=== PATIENT | male | born 1955 | race Caucasian/White ===

== ENCOUNTER 2016-10-23 12:04 | Emergency (ER) | payer SELFPAY ==
[~2016-10-23] VITALS: Ht 180.3 cm; Wt 79.5 kg
[2016-10-23] MEDS ORDERED: RISP2 PO (12:21)
[2016-10-23] MEDS ORDERED: LITH300T PO (12:21)
[2016-10-23 12:33] LABS: BASOPHILS # (AUTO) 0.04 K/uL (0.00-0.20); BASOPHILS % (AUTO) 0.6 % (0.0-2.0); EOSINOPHILS % (AUTO) 1.36 % (1.0-6.0); HEMOGLOBIN 15.9 g/dL (13.5-17.5); LYMPHOCYTES # (AUTO) 1.3 K/uL (1.0-4.8); LYMPHOCYTES % (AUTO) 18.4 % (22.0-44.0); MEAN CORPUSCULAR HEMOGLOBIN 31.1 pg (26.0-34.0); MEAN CORPUSCULAR HGB CONC 34.6 G/dL (31.0-37.0); MEAN CORPUSCULAR VOLUME 90 fL (80-100); MONOCYTES # (AUTO) 0.7 K/uL (0.1-1.0); MONOCYTES % (AUTO) 9.2 % (2.0-9.0); NEUTROPHILS # (AUTO) 5.1 K/uL (1.8-7.7); NEUTROPHILS % (AUTO) 70.5 % (40.0-70.0); PLATELET COUNT (AUTO) 331 K/uL (150-450); RED BLOOD CELL COUNT(AUTO) 5.12 MIL/uL (4.50-5.90); RED CELL DISTRIBUTION WIDTH 12.9 % (11.5-14.5); WHITE BLOOD COUNT (AUTO) 7.3 K/uL (4.5-11.0)
[2016-10-23 12:42] LABS: ANION GAP 10 mmol/L (8-16); CALCIUM, TOTAL 9.4 mg/dL (8.8-10.5); CARBON DIOXIDE 25 mmol/L (22-29); CHLORIDE 102 mmol/L (98-107); CREATININE 1.06 mg/dL (0.60-1.30); GLOMERULAR FILTR. RATE CALC > 60 mL/min (>60); POTASSIUM 4.5 mmol/L (3.5-5.1); SODIUM SERUM 137 mmol/L (136-145); UREA NITROGEN, BLOOD 28 mg/dL (7-18)
[2016-10-23 12:48] LABS: ALANINE AMINOTRANSFERASE 46 U/L (12-78); ALBUMIN 4.1 g/dL (3.4-5.0); ASPARTATE AMINOTRANSFERASE 106 U/L (15-37); BILIRUBIN,TOTAL 1.2 mg/dL (0.1-1.0); TOTAL PROTEIN, SERUM 8.4 g/dL (6.4-8.2)
[2016-10-23] MEDS ORDERED: RisperiDONE 1 MG TABLET PO ONE (13:00)
[2016-10-23 13:01] LABS: LITHIUM < 0.20 mmol/L (0.60-1.20)
[2016-10-23 14:04] VITALS: BP 130/72
[2016-10-23] MEDS ORDERED: LORazepam 2 MG TABLET PO ONE (15:45)
== END 2016-10-23 16:22 | disposition home or self-care (01) ==
LOC: EEVIPCON 12:04 → EMS 12:07
DX: F31.9 Bipolar disorder, unspecified (principal); F20.9 Schizophrenia, unspecified; F17.210 Nicotine dependence, cigarettes, uncomplicated
CPT/HCPCS: 36415; 80053; 80178; 85025; 99284; G0480

== ENCOUNTER 2016-12-13 02:19 | Inpatient (IN) | payer MEDICAID ==
[~2016-12-13] VITALS: Ht 177.8 cm; Wt 77.2 kg
[~2016-12-13 02:19] MED LIST: LITH300C3 PO; RISP2 PO
[2016-12-13] MEDS ORDERED: LORazepam 2 MG/ML VIAL IM ONE (04:45)
[2016-12-13] MEDS ORDERED: HALOPERIDOL LACTATE 5 MG/ML VIAL IM ONE (04:45)
[2016-12-13] MEDS ORDERED: DiphenhydrAMINE HCL 50 MG/ML VIAL IM ONE (04:45)
[2016-12-13] MEDS ORDERED: HALOPERIDOL 5 MG TABLET PO PRN (05:15)
[2016-12-13] MEDS ORDERED: LORazepam 2 MG TABLET PO PRN (05:15)
[2016-12-13] MEDS ORDERED: ZOLPIDEM TARTRATE 10 MG TABLET PO PRN (05:15)
[2016-12-13 05:46] VITALS: BP 106/57
[2016-12-13 06:24] LABS: BASOPHILS % (AUTO) 0.4 % (0.0-2.0); EOSINOPHILS % (AUTO) 2.1 % (1.0-6.0); HEMATOCRIT 40.6 % (41-53); HEMOGLOBIN 14.2 g/dL (13.5-17.5); LYMPHOCYTES # (AUTO) 1.3 K/uL (1.0-4.8); LYMPHOCYTES % (AUTO) 15.5 % (22.0-44.0); MEAN CORPUSCULAR HEMOGLOBIN 31.7 pg (26.0-34.0); MEAN CORPUSCULAR VOLUME 91 fL (80-100); MONOCYTES # (AUTO) 0.6 K/uL (0.1-1.0); MONOCYTES % (AUTO) 7.1 % (2.0-9.0); NEUTROPHILS # (AUTO) 6.3 K/uL (1.8-7.7); NEUTROPHILS % (AUTO) 74.9 % (40.0-70.0); PLATELET COUNT (AUTO) 273 K/uL (150-450); RED BLOOD CELL COUNT(AUTO) 4.48 MIL/uL (4.50-5.90); RED CELL DISTRIBUTION WIDTH 12.7 % (11.5-14.5); WHITE BLOOD COUNT (AUTO) 8.5 K/uL (4.5-11.0)
[2016-12-13 06:34] LABS: APPEARANCE,URINE CLEAR (CLEAR); GLUCOSE, URINE (UA) NEGATIVE (NEGATIVE); KETONES,URINE NEGATIVE (NEGATIVE); LEUKOCYTE ESTERASE ,URINE NEGATIVE (NEGATIVE); OCCULT BLOOD,URINE NEGATIVE (NEGATIVE); PROTEIN,URINE NEGATIVE (NEGATIVE)
[2016-12-13 06:34] LABS: ANION GAP 6 mmol/L (8-16); CALCIUM, TOTAL 8.8 mg/dL (8.8-10.5); CARBON DIOXIDE 30 mmol/L (22-29); CHLORIDE 104 mmol/L (98-107); CREATININE 0.73 mg/dL (0.60-1.30); GLOMERULAR FILTR. RATE CALC > 60 mL/min (>60); POTASSIUM 3.5 mmol/L (3.5-5.1); SODIUM SERUM 140 mmol/L (136-145); UREA NITROGEN, BLOOD 18 mg/dL (7-18)
[2016-12-13 06:37] LABS: ADD UA MICROSCOPIC NO
[2016-12-13 06:41] LABS: ALANINE AMINOTRANSFERASE 73 U/L (12-78); ALBUMIN 3.4 g/dL (3.4-5.0); ASPARTATE AMINOTRANSFERASE 170 U/L (15-37); BILIRUBIN,TOTAL 0.6 mg/dL (0.1-1.0)
[2016-12-13] MEDS ORDERED: IBUPROFEN 400 MG TABLET PO PRN (07:00)
[2016-12-13] MEDS ORDERED: ACETAMINOPHEN 325 MG TABLET PO PRN ×2 (07:00→07:30)
[2016-12-13] MEDS ORDERED: LOPERAMIDE HCL 2 MG CAPSULE PO PRN (07:30)
[2016-12-13] MEDS ORDERED: BACITRACIN 28.4 GM OINTMENT TP PRN (07:30)
[2016-12-13] MEDS ORDERED: CloNIDine HCL 0.1 MG TABLET PO PRN (07:30)
[2016-12-13] MEDS ORDERED: PETROLATUM,WHITE 71 GM JELLY TP PRN (07:30)
[2016-12-13] MEDS ORDERED: BENZOCAINE/MENTHOL LOZENGE MM PRN (07:30)
[2016-12-13] MEDS ORDERED: ALBUTEROL SULFATE HFA 90 MCG/PUFF 8 GM INHALER IH PRN (07:30)
[2016-12-13] MEDS ORDERED: MAGNESIUM HYDROXIDE SUSPENSION 30 ML UDCUP PO PRN (07:30)
[2016-12-13] MEDS ORDERED: ONDANSETRON HCL 4 MG TABLET PO PRN (07:30)
[2016-12-13] MEDS ORDERED: MAG HYDROX/AL HYDROX/SIMETH ES 30 ML SUSPENSION UDCUP PO PRN (07:30)
[2016-12-13] MEDS ORDERED: IBUPROFEN 600 MG TABLET PO PRN (07:30)
[2016-12-13] MEDS: HALOPERIDOL 5 MG TABLET PO SCH (17:00)
[2016-12-13] MEDS: BENZTROPINE MESYLATE 0.5 MG TABLET PO SCH (17:32)
[2016-12-14 08:30] VITALS: BP 129/103
[2016-12-14] MEDS: HALOPERIDOL 5 MG TABLET PO SCH ×2 (09:00→17:00)
[2016-12-14] MEDS: BENZTROPINE MESYLATE 0.5 MG TABLET PO SCH ×2 (09:00→17:00)
[2016-12-15] MEDS: HALOPERIDOL 5 MG TABLET PO SCH ×2 (09:00→17:34)
[2016-12-15] MEDS: BENZTROPINE MESYLATE 0.5 MG TABLET PO SCH ×3 (09:00→17:00)
[2016-12-15 10:27] VITALS: BP 130/68
[2016-12-15 18:26] VITALS: BP 101/50
[2016-12-16 06:31] VITALS: BP 125/40
[2016-12-16 07:03] LABS: HEMOGLOBIN A1C 6.2 % (4.5-6.2)
[2016-12-16 07:07] LABS: CHOL/HDL RATIO 2.7 (4.2-7.3)
[2016-12-16] MEDS: HALOPERIDOL 5 MG TABLET PO SCH (09:00)
[2016-12-16] MEDS: BENZTROPINE MESYLATE 0.5 MG TABLET PO SCH (09:00)
[2016-12-16 09:10] VITALS: BP 132/73
[2016-12-16] MEDS: RisperiDONE 1 MG TABLET PO SCH (16:41)
[2016-12-16] MEDS: LITHIUM CARBONATE 300 MG CAPSULE PO SCH (16:41)
[2016-12-16] MEDS ORDERED: HALOPERIDOL 5 MG TABLET PO PRN (16:45)
[2016-12-16 17:43] VITALS: BP 131/74
[2016-12-17] MEDS: RisperiDONE 1 MG TABLET PO SCH ×2 (08:57→16:20)
[2016-12-17] MEDS: LITHIUM CARBONATE 300 MG CAPSULE PO SCH ×2 (08:57→16:20)
[2016-12-17 09:02] VITALS: BP 124/73
[2016-12-17 16:30] VITALS: BP 138/82
[2016-12-18 02:15] VITALS: BP 120/75
[2016-12-18 06:44] LABS: BASOPHILS # (AUTO) 0.02 K/uL (0.00-0.20); BASOPHILS % (AUTO) 0.5 % (0.0-2.0); EOSINOPHILS # (AUTO) 0.17 K/uL (0.00-0.70); EOSINOPHILS % (AUTO) 3.18 % (1.0-6.0); HEMATOCRIT 45.8 % (41-53); HEMOGLOBIN 15.2 g/dL (13.5-17.5); LYMPHOCYTES # (AUTO) 1.3 K/uL (1.0-4.8); LYMPHOCYTES % (AUTO) 23.9 % (22.0-44.0); MEAN CORPUSCULAR HEMOGLOBIN 30.7 pg (26.0-34.0); MEAN CORPUSCULAR HGB CONC 33.2 G/dL (31.0-37.0); MEAN CORPUSCULAR VOLUME 93 fL (80-100); MONOCYTES # (AUTO) 0.6 K/uL (0.1-1.0); MONOCYTES % (AUTO) 11.5 % (2.0-9.0); NEUTROPHILS # (AUTO) 3.2 K/uL (1.8-7.7); PLATELET COUNT (AUTO) 273 K/uL (150-450); RED BLOOD CELL COUNT(AUTO) 4.95 MIL/uL (4.50-5.90); RED CELL DISTRIBUTION WIDTH 13.1 % (11.5-14.5); WHITE BLOOD COUNT (AUTO) 5.3 K/uL (4.5-11.0)
[2016-12-18 07:39] LABS: ALANINE AMINOTRANSFERASE 47 U/L (12-78); ALBUMIN 3.6 g/dL (3.4-5.0); ANION GAP 7 mmol/L (8-16); ASPARTATE AMINOTRANSFERASE 42 U/L (15-37); BILIRUBIN,TOTAL 0.4 mg/dL (0.1-1.0); CALCIUM, TOTAL 9.1 mg/dL (8.8-10.5); CARBON DIOXIDE 28 mmol/L (22-29); CHLORIDE 104 mmol/L (98-107); CHOL/HDL RATIO 2.6 (4.2-7.3); CREATININE 0.81 mg/dL (0.60-1.30); GLOMERULAR FILTR. RATE CALC > 60 mL/min (>60); POTASSIUM 4.5 mmol/L (3.5-5.1); SODIUM SERUM 139 mmol/L (136-145); THYROID STIMULATING HORMONE 3.12 uIU/mL (0.36-3.74); TOTAL PROTEIN, SERUM 7.5 g/dL (6.4-8.2); UREA NITROGEN, BLOOD 27 mg/dL (7-18)
[2016-12-18 08:27] VITALS: BP 119/62
[2016-12-18 09:10] LABS: LITHIUM 0.31 mmol/L (0.60-1.20)
[2016-12-18] MEDS: LITHIUM CARBONATE 300 MG CAPSULE PO SCH (09:20)
[2016-12-18] MEDS: RisperiDONE 1 MG TABLET PO SCH (09:20)
[2016-12-19 08:23] LABS: HEPATITIS Bs ANTIGEN SCREEN P Negative (Negative); HEPATITIS C AB SCREEN >11.0 s/co ratio (0.0-0.9)
== END 2016-12-18 14:27 | disposition home or self-care (01) | DRG 753 ==
LOC: EMS 02:20 → 3EI 04:34
PROVIDERS: ADMIT Psychiatry & Neurology Psychiatry; ATTEND Psychiatry & Neurology Psychiatry
DX: F31.9 Bipolar disorder, unspecified (principal); Z91.19 Patient's noncompliance with other medical treatment and regimen; R45.851 Suicidal ideations; F29 Unspecified psychosis not due to a substance or known physiological condition; J44.9 Chronic obstructive pulmonary disease, unspecified; F41.9 Anxiety disorder, unspecified; R45.87 Impulsiveness; G47.00 Insomnia, unspecified; K21.9 Gastro-esophageal reflux disease without esophagitis; M19.90 Unspecified osteoarthritis, unspecified site; R74.0 Nonspecific elevation of levels of transaminase and lactic acid dehydrogenase [LDH]; F10.10 Alcohol abuse, uncomplicated; F17.210 Nicotine dependence, cigarettes, uncomplicated; Z59.0 Homelessness; Z71.6 Tobacco abuse counseling; Z71.41 Alcohol abuse counseling and surveillance of alcoholic
CPT/HCPCS: 80074; 82306; 83036; 84443; 96372; 99285; J1200; J1630; J2060

== ENCOUNTER 2016-12-25 20:17 | Emergency (ER) | payer MEDICAID ==
[~2016-12-25] VITALS: Ht 177.8 cm; Wt 47.7 kg
[2016-12-25 21:32] LABS: BASOPHILS % (AUTO) 0.7 % (0.0-2.0); EOSINOPHILS % (AUTO) 2.9 % (1.0-6.0); HEMATOCRIT 41.3 % (41-53); HEMOGLOBIN 14.2 g/dL (13.5-17.5); LYMPHOCYTES # (AUTO) 1.5 K/uL (1.0-4.8); MEAN CORPUSCULAR HEMOGLOBIN 31.3 pg (26.0-34.0); MEAN CORPUSCULAR HGB CONC 34.4 G/dL (31.0-37.0); MEAN CORPUSCULAR VOLUME 91 fL (80-100); MONOCYTES # (AUTO) 0.6 K/uL (0.1-1.0); MONOCYTES % (AUTO) 10.6 % (2.0-9.0); NEUTROPHILS # (AUTO) 3.7 K/uL (1.8-7.7); NEUTROPHILS % (AUTO) 60.8 % (40.0-70.0); PLATELET COUNT (AUTO) 251 K/uL (150-450); RED BLOOD CELL COUNT(AUTO) 4.54 MIL/uL (4.50-5.90); RED CELL DISTRIBUTION WIDTH 12.9 % (11.5-14.5)
[2016-12-25 21:50] LABS: ANION GAP 7 mmol/L (8-16); CALCIUM, TOTAL 9.2 mg/dL (8.8-10.5); CARBON DIOXIDE 29 mmol/L (22-29); CHLORIDE 102 mmol/L (98-107); CREATININE 0.79 mg/dL (0.60-1.30); GLOMERULAR FILTR. RATE CALC > 60 mL/min (>60); POTASSIUM 4.2 mmol/L (3.5-5.1); SODIUM SERUM 138 mmol/L (136-145); UREA NITROGEN, BLOOD 24 mg/dL (7-18)
[2016-12-25 21:55] LABS: ALANINE AMINOTRANSFERASE 52 U/L (12-78); ALBUMIN 3.5 g/dL (3.4-5.0); ASPARTATE AMINOTRANSFERASE 68 U/L (15-37); BILIRUBIN,TOTAL 0.7 mg/dL (0.1-1.0); TOTAL PROTEIN, SERUM 7.4 g/dL (6.4-8.2)
[2016-12-25 22:13] LABS: LITHIUM < 0.20 mmol/L (0.60-1.20)
[2016-12-26] MEDS ORDERED: LORazepam 2 MG TABLET PO PRN (00:45)
[2016-12-26] MEDS ORDERED: ZOLPIDEM TARTRATE 10 MG TABLET PO PRN (00:45)
[2016-12-26] MEDS ORDERED: HALOPERIDOL 5 MG TABLET PO PRN (00:45)
[2016-12-26 09:32] VITALS: BP 121/65
== END 2016-12-26 09:41 | disposition home or self-care (01) ==
LOC: EMS 20:20
DX: F31.9 Bipolar disorder, unspecified (principal); F17.210 Nicotine dependence, cigarettes, uncomplicated; Z91.14 Patient's other noncompliance with medication regimen
CPT/HCPCS: 36415; 80053; 80178; 80307; 85025; 99284; G0480

== ENCOUNTER 2016-12-26 23:41 | Inpatient (IN) | payer MEDICAID ==
[~2016-12-26] VITALS: Ht 177.8 cm; Wt 75.1 kg
[2016-12-27 02:25] LABS: BASOPHILS # (AUTO) 0.02 K/uL (0.00-0.20); BASOPHILS % (AUTO) 0.4 % (0.0-2.0); EOSINOPHILS # (AUTO) 0.18 K/uL (0.00-0.70); EOSINOPHILS % (AUTO) 2.89 % (1.0-6.0); HEMATOCRIT 41.7 % (41-53); LYMPHOCYTES # (AUTO) 1.8 K/uL (1.0-4.8); LYMPHOCYTES % (AUTO) 28.3 % (22.0-44.0); MEAN CORPUSCULAR HEMOGLOBIN 30.7 pg (26.0-34.0); MEAN CORPUSCULAR HGB CONC 33.5 G/dL (31.0-37.0); MEAN CORPUSCULAR VOLUME 92 fL (80-100); MONOCYTES # (AUTO) 0.7 K/uL (0.1-1.0); MONOCYTES % (AUTO) 10.4 % (2.0-9.0); NEUTROPHILS # (AUTO) 3.6 K/uL (1.8-7.7); NEUTROPHILS % (AUTO) 58.1 % (40.0-70.0); PLATELET COUNT (AUTO) 228 K/uL (150-450); RED BLOOD CELL COUNT(AUTO) 4.55 MIL/uL (4.50-5.90); RED CELL DISTRIBUTION WIDTH 12.7 % (11.5-14.5); WHITE BLOOD COUNT (AUTO) 6.2 K/uL (4.5-11.0)
[2016-12-27 02:37] LABS: ANION GAP 4 mmol/L (8-16); CALCIUM, TOTAL 8.9 mg/dL (8.8-10.5); CARBON DIOXIDE 30 mmol/L (22-29); CHLORIDE 104 mmol/L (98-107); CREATININE 0.86 mg/dL (0.60-1.30); GLOMERULAR FILTR. RATE CALC > 60 mL/min (>60); POTASSIUM 4.1 mmol/L (3.5-5.1); SODIUM SERUM 138 mmol/L (136-145); UREA NITROGEN, BLOOD 18 mg/dL (7-18)
[2016-12-27 02:40] LABS: LITHIUM < 0.20 mmol/L (0.60-1.20)
[2016-12-27 02:42] LABS: ALANINE AMINOTRANSFERASE 49 U/L (12-78); ALBUMIN 3.4 g/dL (3.4-5.0); ASPARTATE AMINOTRANSFERASE 55 U/L (15-37); BILIRUBIN,TOTAL 0.5 mg/dL (0.1-1.0); TOTAL PROTEIN, SERUM 6.9 g/dL (6.4-8.2)
[2016-12-27] MEDS ORDERED: HALOPERIDOL 5 MG TABLET PO PRN (03:15)
[2016-12-27] MEDS ORDERED: ZOLPIDEM TARTRATE 10 MG TABLET PO PRN (03:15)
[2016-12-27] MEDS ORDERED: LORazepam 2 MG TABLET PO PRN (03:15)
[2016-12-27] MEDS ORDERED: INFLUENZA VIRUS VACCINE QVS 2017-18 (3YR+)/PF 60 MCG/0.5 ML SYRINGE IM ONE (07:15)
[2016-12-27 07:36] VITALS: BP 111/73
[2016-12-27] MEDS ORDERED: PETROLATUM,WHITE 71 GM JELLY TP PRN (08:45)
[2016-12-27] MEDS ORDERED: BACITRACIN 28.4 GM OINTMENT TP PRN (08:45)
[2016-12-27] MEDS ORDERED: ALBUTEROL SULFATE HFA 90 MCG/PUFF 8 GM INHALER IH PRN (08:45)
[2016-12-27] MEDS ORDERED: MAG HYDROX/AL HYDROX/SIMETH ES 30 ML SUSPENSION UDCUP PO PRN (08:45)
[2016-12-27] MEDS ORDERED: LOPERAMIDE HCL 2 MG CAPSULE PO PRN (08:45)
[2016-12-27] MEDS ORDERED: ONDANSETRON HCL 4 MG TABLET PO PRN (08:45)
[2016-12-27] MEDS ORDERED: ACETAMINOPHEN 325 MG TABLET PO PRN (08:45)
[2016-12-27] MEDS ORDERED: CloNIDine HCL 0.1 MG TABLET PO PRN (08:45)
[2016-12-27] MEDS ORDERED: MAGNESIUM HYDROXIDE SUSPENSION 30 ML UDCUP PO PRN (08:45)
[2016-12-27] MEDS ORDERED: BENZOCAINE/MENTHOL LOZENGE MM PRN (08:45)
[2016-12-27] MEDS ORDERED: IBUPROFEN 600 MG TABLET PO PRN (08:45)
[2016-12-27 09:01] VITALS: BP 101/65
[2016-12-27] MEDS: LITHIUM CARBONATE 300 MG CAPSULE PO SCH ×2 (09:35→17:01)
[2016-12-27] MEDS: RisperiDONE 1 MG TABLET PO SCH ×2 (09:35→17:01)
[2016-12-27 16:04] VITALS: BP 98/61
[2016-12-28] MEDS: LITHIUM CARBONATE 300 MG CAPSULE PO SCH ×2 (08:40→16:31)
[2016-12-28] MEDS: RisperiDONE 1 MG TABLET PO SCH ×2 (08:40→16:31)
[2016-12-28 10:07] VITALS: BP 106/60
[2016-12-28 16:28] VITALS: BP 117/68
[2016-12-29 06:27] VITALS: BP 102/59
[2016-12-29 08:04] VITALS: BP 117/62
[2016-12-29] MEDS: RisperiDONE 1 MG TABLET PO SCH ×2 (08:06→16:13)
[2016-12-29] MEDS: LITHIUM CARBONATE 300 MG CAPSULE PO SCH ×2 (08:06→16:13)
[2016-12-29 08:20] LABS: HEMOGLOBIN A1C 6.3 % (4.5-6.2)
[2016-12-29 08:40] LABS: CHOL/HDL RATIO 3.3 (4.2-7.3); THYROID STIMULATING HORMONE 1.42 uIU/mL (0.36-3.74)
[2016-12-29] MEDS ORDERED: GLUCAGON,HUMAN RECOMBINANT 1 MG VIAL IM PRN (08:45)
[2016-12-29] MEDS ORDERED: INSULIN ASPART 100 UNITS/ML SQ PRN (08:45)
[2016-12-29 13:57] LABS: GLUCOSE,POINT OF CARE 116 MG/DL (70-110)
== END 2016-12-29 19:37 | disposition home or self-care (01) | DRG 751 ==
LOC: EMS 23:42 → B2S 12-27 03:30
PROVIDERS: ADMIT Psychiatry & Neurology Psychiatry; ATTEND Psychiatry & Neurology Psychiatry
DX: F23 Brief psychotic disorder (principal); R45.851 Suicidal ideations; F31.9 Bipolar disorder, unspecified; J44.9 Chronic obstructive pulmonary disease, unspecified; B18.2 Chronic viral hepatitis C; F12.90 Cannabis use, unspecified, uncomplicated; F17.200 Nicotine dependence, unspecified, uncomplicated; F41.9 Anxiety disorder, unspecified; G47.00 Insomnia, unspecified; M19.90 Unspecified osteoarthritis, unspecified site; F19.10 Other psychoactive substance abuse, uncomplicated; Z59.0 Homelessness; Z91.5 Personal history of self-harm; Z79.899 Other long term (current) drug therapy
CPT/HCPCS: 82306; 82962; 83036; 84443; 87081; 99285; G0480

== ENCOUNTER 2017-02-15 03:19 | Emergency (ER) | payer SELFPAY ==
[~2017-02-15] VITALS: Ht 177.8 cm; Wt 79.5 kg
[2017-02-15 05:18] LABS: BASOPHILS % (AUTO) 0.4 % (0.0-2.0); EOSINOPHILS % (AUTO) 1.6 % (1.0-6.0); HEMATOCRIT 42.8 % (41-53); HEMOGLOBIN 14.8 g/dL (13.5-17.5); LYMPHOCYTES # (AUTO) 1.6 K/uL (1.0-4.8); LYMPHOCYTES % (AUTO) 27.2 % (22.0-44.0); MEAN CORPUSCULAR HEMOGLOBIN 31.2 pg (26.0-34.0); MEAN CORPUSCULAR HGB CONC 34.6 G/dL (31.0-37.0); MEAN CORPUSCULAR VOLUME 90 fL (80-100); MONOCYTES # (AUTO) 0.6 K/uL (0.1-1.0); MONOCYTES % (AUTO) 9.9 % (2.0-9.0); NEUTROPHILS # (AUTO) 3.5 K/uL (1.8-7.7); NEUTROPHILS % (AUTO) 60.9 % (40.0-70.0); PLATELET COUNT (AUTO) 287 K/uL (150-450); RED BLOOD CELL COUNT(AUTO) 4.75 MIL/uL (4.50-5.90); RED CELL DISTRIBUTION WIDTH 12.6 % (11.5-14.5)
[2017-02-15 05:29] LABS: ANION GAP 6 mmol/L (8-16); CALCIUM, TOTAL 9.3 mg/dL (8.8-10.5); CARBON DIOXIDE 32 mmol/L (22-29); CHLORIDE 101 mmol/L (98-107); CREATININE 0.83 mg/dL (0.60-1.30); GLOMERULAR FILTR. RATE CALC > 60 mL/min (>60); GLUCOSE,RANDOM 118 mg/dL (70-110); POTASSIUM 4.3 mmol/L (3.5-5.1); SODIUM SERUM 139 mmol/L (136-145); UREA NITROGEN, BLOOD 19 mg/dL (7-18)
[2017-02-15 05:35] LABS: ALANINE AMINOTRANSFERASE 51 U/L (12-78); ALBUMIN 3.8 g/dL (3.4-5.0); ALKALINE PHOSPHATASE 90 U/L (46-116); ASPARTATE AMINOTRANSFERASE 64 U/L (15-37); BILIRUBIN,TOTAL 0.6 mg/dL (0.1-1.0); TOTAL PROTEIN, SERUM 7.9 g/dL (6.4-8.2)
[2017-02-15 05:59] LABS: AMPHET/METH SCREEN,URINE NEGATIVE (NEGATIVE); BARBITURATE SCREEN, URINE NEGATIVE (NEGATIVE); BENZODIAZEPINES SCREEN,URINE NEGATIVE (NEGATIVE); CANNABINOID SCREEN,URINE NEGATIVE (NEGATIVE); COCAINE SCREEN,URINE NEGATIVE (NEGATIVE); METHADONE SCREEN, URINE NEGATIVE (NEGATIVE); OPIATE SCREEN,URINE NEGATIVE (NEGATIVE); PHENCYCLIDINE SCREEN,URINE NEGATIVE (NEGATIVE)
[2017-02-15 08:42] VITALS: BP 124/74
[2017-02-16] MEDS ORDERED: RISP1 PO (16:34)
== END 2017-02-15 10:42 | disposition home or self-care (01) ==
LOC: EMS 03:21
DX: F31.9 Bipolar disorder, unspecified (principal); F17.210 Nicotine dependence, cigarettes, uncomplicated
CPT/HCPCS: 36415; 80053; 80307; 85025; 99285; G0480

== ENCOUNTER 2017-02-16 03:30 | Inpatient (IN) | payer MEDICAID ==
[~2017-02-16] VITALS: Ht 182.9 cm; Wt 75.7 kg
[2017-02-16] MEDS ORDERED: HALOPERIDOL LACTATE 5 MG/ML VIAL IM ONE (04:00)
[2017-02-16] MEDS ORDERED: LORazepam 2 MG/ML VIAL IM ONE (04:00)
[2017-02-16] MEDS ORDERED: DiphenhydrAMINE HCL 50 MG/ML VIAL IM ONE (04:00)
[2017-02-16 06:03] LABS: ANION GAP 4 mmol/L (8-16); CARBON DIOXIDE 32 mmol/L (22-29); CHLORIDE 103 mmol/L (98-107); CREATININE 0.81 mg/dL (0.60-1.30); GLOMERULAR FILTR. RATE CALC > 60 mL/min (>60); GLUCOSE,RANDOM 146 mg/dL (70-110); POTASSIUM 4.3 mmol/L (3.5-5.1); SODIUM SERUM 139 mmol/L (136-145); UREA NITROGEN, BLOOD 20 mg/dL (7-18)
[2017-02-16 06:06] LABS: BASOPHILS # (AUTO) 0.01 K/uL (0.00-0.20); BASOPHILS % (AUTO) 0.2 % (0.0-2.0); EOSINOPHILS % (AUTO) 1.54 % (1.0-6.0); HEMATOCRIT 40.6 % (41-53); HEMOGLOBIN 13.9 g/dL (13.5-17.5); LITHIUM < 0.20 mmol/L (0.60-1.20); LYMPHOCYTES # (AUTO) 1.4 K/uL (1.0-4.8); LYMPHOCYTES % (AUTO) 21.8 % (22.0-44.0); MEAN CORPUSCULAR HGB CONC 34.2 G/dL (31.0-37.0); MEAN CORPUSCULAR VOLUME 91 fL (80-100); MONOCYTES # (AUTO) 0.7 K/uL (0.1-1.0); MONOCYTES % (AUTO) 10.1 % (2.0-9.0); NEUTROPHILS # (AUTO) 4.3 K/uL (1.8-7.7); NEUTROPHILS % (AUTO) 66.4 % (40.0-70.0); PLATELET COUNT (AUTO) 250 K/uL (150-450); RED BLOOD CELL COUNT(AUTO) 4.47 MIL/uL (4.50-5.90); RED CELL DISTRIBUTION WIDTH 12.6 % (11.5-14.5)
[2017-02-16 06:09] LABS: ALANINE AMINOTRANSFERASE 42 U/L (12-78); ALBUMIN 3.4 g/dL (3.4-5.0); ALKALINE PHOSPHATASE 91 U/L (46-116); ASPARTATE AMINOTRANSFERASE 59 U/L (15-37); BILIRUBIN,TOTAL 0.5 mg/dL (0.1-1.0); TOTAL PROTEIN, SERUM 7.2 g/dL (6.4-8.2)
[2017-02-16 16:29] VITALS: BP 116/78
[2017-02-16] MEDS ORDERED: RISP1 PO (16:34)
[2017-02-16] MEDS ORDERED: PNEUMOCOCCAL VACCINE POLYVALENT 0.5 ML VIAL [PPSV23] IM ONE (16:45)
[2017-02-16] MEDS ORDERED: INFLUENZA VIRUS VACCINE QVS 2017-18 (3YR+)/PF 60 MCG/0.5 ML SYRINGE IM ONE (16:45)
[2017-02-17 00:40] VITALS: BP 125/68
[2017-02-17] MEDS: ZOLPIDEM TARTRATE 10 MG TABLET PO PRN (00:42)
[2017-02-17 08:12] VITALS: BP 129/82
[2017-02-17] MEDS: LORazepam 2 MG TABLET PO PRN ×2 (09:59→15:28)
[2017-02-17] MEDS: LITHIUM CARBONATE 300 MG CAPSULE PO SCH ×2 (10:51→16:01)
[2017-02-17 16:00] VITALS: BP 137/67
[2017-02-17] MEDS: RisperiDONE 1 MG TABLET PO SCH (16:01)
[2017-02-18 03:10] VITALS: BP 146/90
[2017-02-18] MEDS: LORazepam 2 MG TABLET PO PRN ×4 (03:32→16:45)
[2017-02-18 08:53] LABS: LITHIUM < 0.20 mmol/L (0.60-1.20)
[2017-02-18 08:58] VITALS: BP 122/64
[2017-02-18 09:02] LABS: CHOL/HDL RATIO 2.9 (4.2-7.3); CHOLESTEROL 135 mg/dL (131-200); HDL CHOLESTEROL 47 mg/dL (40-60); LDL CHOL (CALC.) 61 mg/dL (0-130); TRIGLYCERIDES 135 mg/dL (15-150)
[2017-02-18] MEDS: LITHIUM CARBONATE 300 MG CAPSULE PO SCH ×2 (09:12→16:45)
[2017-02-18] MEDS: RisperiDONE 1 MG TABLET PO SCH ×2 (09:12→16:45)
[2017-02-19 02:02] VITALS: BP 115/75
[2017-02-19] MEDS: ZOLPIDEM TARTRATE 10 MG TABLET PO PRN ×2 (02:04→22:05)
[2017-02-19] MEDS: RisperiDONE 1 MG TABLET PO SCH ×2 (08:14→16:15)
[2017-02-19] MEDS: LORazepam 2 MG TABLET PO PRN ×3 (08:14→21:35)
[2017-02-19] MEDS: LITHIUM CARBONATE 300 MG CAPSULE PO SCH ×2 (08:14→16:15)
[2017-02-19 08:40] VITALS: BP 127/71
[2017-02-19] MEDS: HALOPERIDOL 5 MG TABLET PO PRN (16:16)
[2017-02-19 16:33] VITALS: BP 122/72
[2017-02-20 05:24] VITALS: BP 127/78
[2017-02-20 08:04] VITALS: BP 121/69
[2017-02-20] MEDS: RisperiDONE 1 MG TABLET PO SCH ×2 (09:08→16:42)
[2017-02-20] MEDS: LORazepam 2 MG TABLET PO PRN ×2 (09:08→16:42)
[2017-02-20] MEDS: LITHIUM CARBONATE 300 MG CAPSULE PO SCH ×2 (09:08→16:42)
[2017-02-20] MEDS: BENZTROPINE MESYLATE 1 MG TABLET PO SCH ×2 (11:15→20:26)
[2017-02-20 16:00] VITALS: BP 124/73
[2017-02-20] MEDS: ZOLPIDEM TARTRATE 10 MG TABLET PO PRN (21:28)
[2017-02-21 05:27] VITALS: BP 122/76
[2017-02-21 08:13] VITALS: BP 139/84
[2017-02-21] MEDS: BENZTROPINE MESYLATE 1 MG TABLET PO SCH ×2 (08:43→21:14)
[2017-02-21] MEDS: RisperiDONE 1 MG TABLET PO SCH ×2 (08:43→16:30)
[2017-02-21] MEDS: LORazepam 2 MG TABLET PO PRN ×3 (08:43→17:31)
[2017-02-21] MEDS: LITHIUM CARBONATE 300 MG CAPSULE PO SCH ×2 (08:43→16:30)
[2017-02-21 16:00] VITALS: BP 136/67
[2017-02-22 00:06] VITALS: BP 140/80
[2017-02-22 08:10] VITALS: BP 138/78
[2017-02-22] MEDS: LITHIUM CARBONATE 300 MG CAPSULE PO SCH ×2 (09:03→16:09)
[2017-02-22] MEDS: RisperiDONE 1 MG TABLET PO SCH (09:03)
[2017-02-22] MEDS: LORazepam 2 MG TABLET PO PRN ×2 (09:03→16:09)
[2017-02-22] MEDS: BENZTROPINE MESYLATE 1 MG TABLET PO SCH (09:03)
[2017-02-22 16:00] VITALS: BP 128/71
[2017-02-22] MEDS ORDERED: RisperiDONE 2 MG TABLET PO SCH (17:00)
[2017-02-22] MEDS: BENZTROPINE MESYLATE 2 MG TABLET PO SCH (20:35)
[2017-02-22] MEDS: ZOLPIDEM TARTRATE 10 MG TABLET PO PRN (20:36)
[2017-02-23 00:54] VITALS: BP 109/64
[2017-02-23 08:04] VITALS: BP 138/83
[2017-02-23] MEDS: BENZTROPINE MESYLATE 2 MG TABLET PO SCH ×2 (08:35→20:47)
[2017-02-23] MEDS: RisperiDONE 3 MG TABLET PO SCH ×2 (08:41→16:35)
[2017-02-23] MEDS: LITHIUM CARBONATE 600 MG CAPSULE PO SCH ×2 (08:42→16:35)
[2017-02-23 16:04] VITALS: BP 133/71
[2017-02-23] MEDS: ZOLPIDEM TARTRATE 10 MG TABLET PO PRN (20:47)
[2017-02-24 05:30] VITALS: BP 143/68
[2017-02-24 09:19] VITALS: BP 141/85
[2017-02-24] MEDS: LITHIUM CARBONATE 600 MG CAPSULE PO SCH ×2 (09:25→17:06)
[2017-02-24] MEDS: RisperiDONE 3 MG TABLET PO SCH ×2 (09:25→17:06)
[2017-02-24] MEDS: BENZTROPINE MESYLATE 2 MG TABLET PO SCH ×2 (09:26→20:11)
[2017-02-24 16:00] VITALS: BP 115/66
[2017-02-24] MEDS: LORazepam 2 MG TABLET PO PRN (17:06)
[2017-02-24] MEDS: ZOLPIDEM TARTRATE 10 MG TABLET PO PRN (20:11)
[2017-02-25 01:32] VITALS: BP 146/91
[2017-02-25 08:06] VITALS: BP 124/71
[2017-02-25] MEDS: LITHIUM CARBONATE 600 MG CAPSULE PO SCH ×2 (08:42→16:23)
[2017-02-25] MEDS: BENZTROPINE MESYLATE 2 MG TABLET PO SCH ×2 (08:42→20:12)
[2017-02-25] MEDS: RisperiDONE 3 MG TABLET PO SCH ×2 (08:42→16:23)
[2017-02-25 16:16] VITALS: BP 121/62
[2017-02-25] MEDS: LORazepam 2 MG TABLET PO PRN (16:23)
[2017-02-26 01:19] VITALS: BP 125/65
[2017-02-26] MEDS: ZOLPIDEM TARTRATE 10 MG TABLET PO PRN ×2 (01:20→20:47)
[2017-02-26 08:08] VITALS: BP 110/62
[2017-02-26] MEDS: RisperiDONE 3 MG TABLET PO SCH ×2 (08:57→16:26)
[2017-02-26] MEDS: LITHIUM CARBONATE 600 MG CAPSULE PO SCH ×2 (08:57→16:26)
[2017-02-26] MEDS: BENZTROPINE MESYLATE 2 MG TABLET PO SCH ×2 (08:57→20:43)
[2017-02-26] MEDS: LORazepam 2 MG TABLET PO PRN ×2 (08:57→16:26)
[2017-02-26 16:00] VITALS: BP 118/67
[2017-02-27 02:08] VITALS: BP 122/70
[2017-02-27 08:26] VITALS: BP 119/63
[2017-02-27] MEDS: RisperiDONE 3 MG TABLET PO SCH ×2 (09:02→16:52)
[2017-02-27] MEDS: BENZTROPINE MESYLATE 2 MG TABLET PO SCH ×2 (09:02→20:32)
[2017-02-27] MEDS: LORazepam 2 MG TABLET PO PRN ×3 (09:02→17:07)
[2017-02-27] MEDS: LITHIUM CARBONATE 600 MG CAPSULE PO SCH ×2 (09:02→16:52)
[2017-02-27 16:00] VITALS: BP 114/69
[2017-02-28] MEDS: ZOLPIDEM TARTRATE 10 MG TABLET PO PRN ×2 (00:37→20:53)
[2017-02-28 01:54] VITALS: BP 129/69
[2017-02-28 08:26] VITALS: BP 131/75
[2017-02-28] MEDS: LITHIUM CARBONATE 600 MG CAPSULE PO SCH ×2 (08:52→16:04)
[2017-02-28] MEDS: RisperiDONE 3 MG TABLET PO SCH ×2 (08:52→16:04)
[2017-02-28] MEDS: BENZTROPINE MESYLATE 2 MG TABLET PO SCH ×2 (08:52→20:03)
[2017-02-28] MEDS: LORazepam 2 MG TABLET PO PRN (16:33)
[2017-02-28 16:36] VITALS: BP 115/69
[2017-03-01 01:08] VITALS: BP 120/83
[2017-03-01 08:00] VITALS: BP 125/71
[2017-03-01] MEDS: LITHIUM CARBONATE 600 MG CAPSULE PO SCH ×2 (08:59→16:32)
[2017-03-01] MEDS: RisperiDONE 3 MG TABLET PO SCH ×2 (08:59→16:32)
[2017-03-01] MEDS: BENZTROPINE MESYLATE 2 MG TABLET PO SCH ×2 (09:00→20:25)
[2017-03-01] MEDS: LORazepam 2 MG TABLET PO PRN (16:32)
[2017-03-01 16:35] VITALS: BP 114/70
[2017-03-01] MEDS: ZOLPIDEM TARTRATE 10 MG TABLET PO PRN (20:25)
[2017-03-02 01:41] VITALS: BP 122/71
[2017-03-02 08:06] VITALS: BP 122/62
[2017-03-02] MEDS: RisperiDONE 3 MG TABLET PO SCH ×2 (08:36→16:58)
[2017-03-02] MEDS: LITHIUM CARBONATE 600 MG CAPSULE PO SCH ×2 (08:36→16:58)
[2017-03-02] MEDS: BENZTROPINE MESYLATE 2 MG TABLET PO SCH ×2 (08:37→20:34)
[2017-03-02 16:31] VITALS: BP 110/64
[2017-03-02] MEDS: HALOPERIDOL 5 MG TABLET PO PRN (16:58)
[2017-03-02] MEDS: LORazepam 2 MG TABLET PO PRN (16:58)
[2017-03-02] MEDS: ZOLPIDEM TARTRATE 10 MG TABLET PO PRN (20:45)
[2017-03-03 05:15] VITALS: BP 143/75
[2017-03-03] MEDS: LITHIUM CARBONATE 600 MG CAPSULE PO SCH ×2 (08:06→16:26)
[2017-03-03] MEDS: RisperiDONE 3 MG TABLET PO SCH ×2 (08:06→16:26)
[2017-03-03] MEDS: BENZTROPINE MESYLATE 2 MG TABLET PO SCH ×2 (08:06→20:36)
[2017-03-03 08:13] VITALS: BP 112/65
[2017-03-03] MEDS: LORazepam 2 MG TABLET PO PRN (16:27)
[2017-03-03 17:11] VITALS: BP 128/72
[2017-03-04 00:25] VITALS: BP 138/71
[2017-03-04 08:08] VITALS: BP 129/70
[2017-03-04] MEDS: RisperiDONE 3 MG TABLET PO SCH ×2 (08:31→16:40)
[2017-03-04] MEDS: BENZTROPINE MESYLATE 2 MG TABLET PO SCH ×2 (08:31→20:16)
[2017-03-04] MEDS: LITHIUM CARBONATE 600 MG CAPSULE PO SCH ×2 (08:31→16:40)
[2017-03-04 16:00] VITALS: BP 134/85
[2017-03-04] MEDS: LORazepam 2 MG TABLET PO PRN ×2 (16:40→20:51)
[2017-03-04] MEDS: ZOLPIDEM TARTRATE 10 MG TABLET PO PRN (20:51)
[2017-03-05 06:23] VITALS: BP 126/66
[2017-03-05 08:00] VITALS: BP 133/74
[2017-03-05] MEDS ORDERED: LITH600 PO (08:18)
[2017-03-05] MEDS ORDERED: RISP3 PO (08:19)
[2017-03-05] MEDS ORDERED: BENZ2TAB10 PO (08:20)
[2017-03-05] MEDS: RisperiDONE 3 MG TABLET PO SCH (09:39)
[2017-03-05] MEDS: LITHIUM CARBONATE 600 MG CAPSULE PO SCH (09:39)
[2017-03-05] MEDS: BENZTROPINE MESYLATE 2 MG TABLET PO SCH (09:44)
== END 2017-03-05 12:20 | disposition home or self-care (01) | DRG 750 ==
LOC: EMS 03:31 → B3A 14:20
DX: F25.0 Schizoaffective disorder, bipolar type (principal); F41.9 Anxiety disorder, unspecified; R73.9 Hyperglycemia, unspecified; F17.210 Nicotine dependence, cigarettes, uncomplicated; F19.10 Other psychoactive substance abuse, uncomplicated; Z79.899 Other long term (current) drug therapy
CPT/HCPCS: 96372; 99285; G0480; J1200; J1630; J2060

== ENCOUNTER 2017-03-13 20:19 | Inpatient (IN) | payer MEDICAID ==
[~2017-03-13] VITALS: Ht 177.8 cm; Wt 79.8 kg
[~2017-03-13 20:19] MED LIST changes: +BENZ2TAB10 PO; -LITH300C3 PO; +LITH600 PO; -RISP2 PO; +RISP3 PO
[2017-03-13 20:47] LABS: BASOPHILS % (AUTO) 0.8 % (0.0-2.0); EOSINOPHILS % (AUTO) 0.6 % (1.0-6.0); HEMATOCRIT 42.9 % (41-53); HEMOGLOBIN 14.6 g/dL (13.5-17.5); LYMPHOCYTES # (AUTO) 1.1 K/uL (1.0-4.8); LYMPHOCYTES % (AUTO) 14.5 % (22.0-44.0); MEAN CORPUSCULAR HEMOGLOBIN 30.6 pg (26.0-34.0); MEAN CORPUSCULAR HGB CONC 34.1 G/dL (31.0-37.0); MEAN CORPUSCULAR VOLUME 90 fL (80-100); MONOCYTES # (AUTO) 0.6 K/uL (0.1-1.0); MONOCYTES % (AUTO) 8.6 % (2.0-9.0); NEUTROPHILS # (AUTO) 5.6 K/uL (1.8-7.7); NEUTROPHILS % (AUTO) 75.5 % (40.0-70.0); PLATELET COUNT (AUTO) 241 K/uL (150-450); RED BLOOD CELL COUNT(AUTO) 4.78 MIL/uL (4.50-5.90)
[2017-03-13 21:05] LABS: ANION GAP 5 mmol/L (8-16); CALCIUM, TOTAL 9.5 mg/dL (8.8-10.5); CARBON DIOXIDE 33 mmol/L (22-29); CHLORIDE 103 mmol/L (98-107); CREATININE 0.81 mg/dL (0.60-1.30); GLOMERULAR FILTR. RATE CALC > 60 mL/min (>60); GLUCOSE,RANDOM 107 mg/dL (70-110); POTASSIUM 4.3 mmol/L (3.5-5.1); SODIUM SERUM 141 mmol/L (136-145); UREA NITROGEN, BLOOD 25 mg/dL (7-18)
[2017-03-13 21:11] LABS: ALANINE AMINOTRANSFERASE 52 U/L (12-78); ALBUMIN 3.9 g/dL (3.4-5.0); ALKALINE PHOSPHATASE 111 U/L (46-116); ASPARTATE AMINOTRANSFERASE 52 U/L (15-37); BILIRUBIN,TOTAL 0.6 mg/dL (0.1-1.0); TOTAL PROTEIN, SERUM 8.3 g/dL (6.4-8.2)
[2017-03-13 21:22] LABS: AMPHET/METH SCREEN,URINE NEGATIVE (NEGATIVE); BARBITURATE SCREEN, URINE NEGATIVE (NEGATIVE); BENZODIAZEPINES SCREEN,URINE NEGATIVE (NEGATIVE); CANNABINOID SCREEN,URINE NEGATIVE (NEGATIVE); COCAINE SCREEN,URINE NEGATIVE (NEGATIVE); METHADONE SCREEN, URINE NEGATIVE (NEGATIVE); OPIATE SCREEN,URINE NEGATIVE (NEGATIVE); PHENCYCLIDINE SCREEN,URINE NEGATIVE (NEGATIVE)
[2017-03-13 21:38] LABS: LITHIUM < 0.20 mmol/L (0.60-1.20)
[2017-03-13] MEDS ORDERED: ZOLPIDEM TARTRATE 10 MG TABLET PO PRN (23:30)
[2017-03-13] MEDS ORDERED: HALOPERIDOL 5 MG TABLET PO PRN (23:30)
[2017-03-13] MEDS ORDERED: LORazepam 2 MG TABLET PO PRN (23:30)
[2017-03-14 00:42] VITALS: BP 122/82
[2017-03-14 08:29] VITALS: BP 122/58
[2017-03-14] MEDS: LITHIUM CARBONATE 600 MG CAPSULE PO SCH (16:20)
[2017-03-14] MEDS: RisperiDONE 3 MG TABLET PO SCH (16:20)
[2017-03-14 17:14] VITALS: BP 131/65
[2017-03-14] MEDS: BENZTROPINE MESYLATE 2 MG TABLET PO SCH (20:46)
[2017-03-15 06:45] VITALS: BP 108/60
[2017-03-15 08:21] VITALS: BP 112/64
[2017-03-15] MEDS: LITHIUM CARBONATE 600 MG CAPSULE PO SCH ×2 (08:50→17:03)
[2017-03-15] MEDS: BENZTROPINE MESYLATE 2 MG TABLET PO SCH ×2 (08:50→20:35)
[2017-03-15] MEDS: RisperiDONE 3 MG TABLET PO SCH ×2 (08:50→17:03)
[2017-03-15 16:00] VITALS: BP 119/64
[2017-03-16 05:55] VITALS: BP 121/82
[2017-03-16] MEDS: LITHIUM CARBONATE 600 MG CAPSULE PO SCH ×2 (08:39→16:12)
[2017-03-16] MEDS: BENZTROPINE MESYLATE 2 MG TABLET PO SCH ×2 (08:39→21:20)
[2017-03-16] MEDS: RisperiDONE 3 MG TABLET PO SCH ×2 (08:39→16:12)
[2017-03-16 09:02] LABS: CHOL/HDL RATIO 3.3 (4.2-7.3)
[2017-03-16 09:28] VITALS: BP 113/58
[2017-03-16 16:04] VITALS: BP 113/70
[2017-03-17 06:26] VITALS: BP 117/69
[2017-03-17 08:20] VITALS: BP 109/66
[2017-03-17] MEDS: BENZTROPINE MESYLATE 2 MG TABLET PO SCH ×2 (09:09→20:36)
[2017-03-17] MEDS: RisperiDONE 3 MG TABLET PO SCH ×2 (09:09→16:53)
[2017-03-17] MEDS: LITHIUM CARBONATE 600 MG CAPSULE PO SCH ×2 (09:09→16:53)
[2017-03-17 16:37] VITALS: BP 103/53
[2017-03-18 00:13] VITALS: BP 126/77
[2017-03-18 08:14] VITALS: BP 107/56
[2017-03-18] MEDS: RisperiDONE 3 MG TABLET PO SCH ×2 (08:55→16:36)
[2017-03-18] MEDS: LITHIUM CARBONATE 600 MG CAPSULE PO SCH ×2 (08:55→16:36)
[2017-03-18] MEDS: BENZTROPINE MESYLATE 2 MG TABLET PO SCH ×2 (08:55→20:04)
[2017-03-18 16:00] VITALS: BP 113/60
[2017-03-19 04:21] VITALS: BP 109/66
[2017-03-19] MEDS: LITHIUM CARBONATE 600 MG CAPSULE PO SCH ×2 (08:37→16:24)
[2017-03-19] MEDS: RisperiDONE 3 MG TABLET PO SCH ×2 (08:37→16:24)
[2017-03-19] MEDS: BENZTROPINE MESYLATE 2 MG TABLET PO SCH ×2 (08:37→20:14)
[2017-03-19 10:14] VITALS: BP 106/62
[2017-03-19 16:20] VITALS: BP 105/65
[2017-03-20 05:16] VITALS: BP 132/69
[2017-03-20 09:05] VITALS: BP 100/60
[2017-03-20] MEDS: BENZTROPINE MESYLATE 2 MG TABLET PO SCH ×2 (09:11→20:02)
[2017-03-20] MEDS: RisperiDONE 3 MG TABLET PO SCH ×2 (09:11→16:12)
[2017-03-20] MEDS: LITHIUM CARBONATE 600 MG CAPSULE PO SCH ×2 (09:11→16:12)
[2017-03-20 16:09] VITALS: BP 112/79
[2017-03-21 06:27] VITALS: BP 118/68
[2017-03-21 08:31] VITALS: BP 106/60
[2017-03-21] MEDS: BENZTROPINE MESYLATE 2 MG TABLET PO SCH ×2 (08:43→20:15)
[2017-03-21] MEDS: RisperiDONE 3 MG TABLET PO SCH ×2 (08:43→17:04)
[2017-03-21] MEDS: LITHIUM CARBONATE 600 MG CAPSULE PO SCH ×2 (08:43→17:04)
[2017-03-21 16:12] VITALS: BP 120/60
[2017-03-22 06:02] VITALS: BP 108/62
[2017-03-22] MEDS: RisperiDONE 3 MG TABLET PO SCH ×2 (08:29→16:09)
[2017-03-22] MEDS: LITHIUM CARBONATE 600 MG CAPSULE PO SCH ×2 (08:29→16:09)
[2017-03-22] MEDS: BENZTROPINE MESYLATE 2 MG TABLET PO SCH ×2 (08:29→20:10)
[2017-03-22 08:52] VITALS: BP 119/64
[2017-03-22 16:16] VITALS: BP 118/62
[2017-03-23 05:03] VITALS: BP 118/71
[2017-03-23] MEDS: LITHIUM CARBONATE 600 MG CAPSULE PO SCH ×2 (08:26→16:06)
[2017-03-23] MEDS: BENZTROPINE MESYLATE 2 MG TABLET PO SCH ×2 (08:26→20:26)
[2017-03-23] MEDS: RisperiDONE 3 MG TABLET PO SCH ×2 (08:26→16:06)
[2017-03-23 08:36] VITALS: BP 109/69
[2017-03-23 18:45] VITALS: BP 112/80
[2017-03-24 01:55] VITALS: BP 102/68
[2017-03-24 06:45] VITALS: BP 110/68
[2017-03-24 08:33] VITALS: BP 111/64
[2017-03-24] MEDS: BENZTROPINE MESYLATE 2 MG TABLET PO SCH (09:03)
[2017-03-24] MEDS: LITHIUM CARBONATE 600 MG CAPSULE PO SCH ×2 (09:03→16:50)
[2017-03-24] MEDS: RisperiDONE 3 MG TABLET PO SCH ×2 (09:03→16:50)
[2017-03-24] MEDS ORDERED: BENZ2TAB10 PO (12:25)
[2017-03-24 16:20] VITALS: BP 118/89
== END 2017-03-24 18:00 | disposition home or self-care (01) | DRG 750 ==
LOC: EMS 20:20 → B2S 23:12
PROVIDERS: ADMIT Psychiatry & Neurology Child & Adolescent Psychiatry
DX: F25.0 Schizoaffective disorder, bipolar type (principal); R45.851 Suicidal ideations; R74.0 Nonspecific elevation of levels of transaminase and lactic acid dehydrogenase [LDH]; F17.210 Nicotine dependence, cigarettes, uncomplicated; F41.9 Anxiety disorder, unspecified; R73.9 Hyperglycemia, unspecified; F19.10 Other psychoactive substance abuse, uncomplicated; Z71.51 Drug abuse counseling and surveillance of drug abuser; Z79.899 Other long term (current) drug therapy
CPT/HCPCS: 87081; 99285; G0480

== ENCOUNTER 2017-06-17 21:14 | Inpatient (IN) | payer MEDICAID ==
[~2017-06-17] VITALS: Ht 177.8 cm; Wt 79.6 kg
[~2017-06-17 21:14] MED LIST changes: +TRAZ-144 PO
[2017-06-17 21:56] LABS: BASOPHILS % (AUTO) 0.7 % (0.0-2.0); EOSINOPHILS % (AUTO) 3.1 % (1.0-6.0); HEMATOCRIT 39.2 % (41-53); HEMOGLOBIN 13.7 g/dL (13.5-17.5); LYMPHOCYTES # (AUTO) 1.5 K/uL (1.0-4.8); LYMPHOCYTES % (AUTO) 17.9 % (22.0-44.0); MEAN CORPUSCULAR HEMOGLOBIN 30.7 pg (26.0-34.0); MEAN CORPUSCULAR HGB CONC 34.9 G/dL (31.0-37.0); MEAN CORPUSCULAR VOLUME 88 fL (80-100); MONOCYTES # (AUTO) 0.8 K/uL (0.1-1.0); MONOCYTES % (AUTO) 10.1 % (2.0-9.0); NEUTROPHILS # (AUTO) 5.7 K/uL (1.8-7.7); NEUTROPHILS % (AUTO) 68.2 % (40.0-70.0); PLATELET COUNT (AUTO) 225 K/uL (150-450); RED BLOOD CELL COUNT(AUTO) 4.45 MIL/uL (4.50-5.90)
[2017-06-17 22:04] LABS: AMPHET/METH SCREEN,URINE NEGATIVE (NEGATIVE); BARBITURATE SCREEN, URINE NEGATIVE (NEGATIVE); BENZODIAZEPINES SCREEN,URINE NEGATIVE (NEGATIVE); CANNABINOID SCREEN,URINE NEGATIVE (NEGATIVE); COCAINE SCREEN,URINE NEGATIVE (NEGATIVE); METHADONE SCREEN, URINE NEGATIVE (NEGATIVE); OPIATE SCREEN,URINE NEGATIVE (NEGATIVE); PHENCYCLIDINE SCREEN,URINE NEGATIVE (NEGATIVE)
[2017-06-17 22:13] LABS: ANION GAP 5 mmol/L (8-16); CALCIUM, TOTAL 9.2 mg/dL (8.8-10.5); CARBON DIOXIDE 31 mmol/L (22-29); CHLORIDE 101 mmol/L (98-107); CREATININE 0.94 mg/dL (0.60-1.30); GLOMERULAR FILTR. RATE CALC > 60 mL/min (>60); GLUCOSE,RANDOM 125 mg/dL (70-110); POTASSIUM 4.2 mmol/L (3.5-5.1); SODIUM SERUM 137 mmol/L (136-145); UREA NITROGEN, BLOOD 17 mg/dL (7-18)
[2017-06-17 22:16] LABS: ALANINE AMINOTRANSFERASE 40 U/L (12-78); ALBUMIN 3.6 g/dL (3.4-5.0); ALKALINE PHOSPHATASE 93 U/L (46-116); ASPARTATE AMINOTRANSFERASE 48 U/L (15-37); BILIRUBIN,TOTAL 0.6 mg/dL (0.1-1.0); TOTAL PROTEIN, SERUM 7.7 g/dL (6.4-8.2)
[2017-06-18 00:36] VITALS: BP 118/69
[2017-06-18] MEDS ORDERED: PNEUMOCOCCAL VACCINE POLYVALENT 0.5 ML VIAL [PPSV23] IM ONE (03:45)
[2017-06-18] MEDS ORDERED: ALBUTEROL SULFATE HFA 90 MCG/PUFF 8 GM INHALER IH PRN ×2 (06:30→20:15)
[2017-06-18 08:08] LABS: CHOL/HDL RATIO 2.4 (4.2-7.3)
[2017-06-18 08:36] VITALS: BP 111/88
[2017-06-18] MEDS: LORazepam 2 MG TABLET PO PRN (16:23)
[2017-06-18 16:35] VITALS: BP 118/70
[2017-06-18] MEDS: RisperiDONE 3 MG TABLET PO SCH (18:58)
[2017-06-18] MEDS: LITHIUM CARBONATE 300 MG CAPSULE PO SCH (19:00)
[2017-06-18] MEDS: BENZTROPINE MESYLATE 2 MG TABLET PO SCH (20:02)
[2017-06-18] MEDS: TraZODone HCL 50 MG TABLET PO SCH (20:02)
[2017-06-18] MEDS ORDERED: ACETAMINOPHEN 325 MG TABLET PO PRN (20:15)
[2017-06-18] MEDS ORDERED: IBUPROFEN 400 MG TABLET PO PRN (20:15)
[2017-06-19 01:50] VITALS: BP 141/89
[2017-06-19] MEDS: LITHIUM CARBONATE 300 MG CAPSULE PO SCH ×2 (08:47→16:10)
[2017-06-19] MEDS: BENZTROPINE MESYLATE 2 MG TABLET PO SCH ×2 (08:47→20:40)
[2017-06-19] MEDS: RisperiDONE 3 MG TABLET PO SCH ×2 (08:47→16:10)
[2017-06-19] MEDS: LORazepam 2 MG TABLET PO PRN ×2 (09:20→16:11)
[2017-06-19 10:01] VITALS: BP 121/69
[2017-06-19 16:39] VITALS: BP 112/64
[2017-06-19] MEDS: ZOLPIDEM TARTRATE 10 MG TABLET PO PRN (20:40)
[2017-06-19] MEDS: TraZODone HCL 50 MG TABLET PO SCH (20:40)
[2017-06-20] MEDS: LORazepam 2 MG TABLET PO PRN ×3 (00:55→17:00)
[2017-06-20 03:38] VITALS: BP 120/81
[2017-06-20 08:12] VITALS: BP 123/89
[2017-06-20] MEDS: LITHIUM CARBONATE 300 MG CAPSULE PO SCH ×2 (09:25→17:00)
[2017-06-20] MEDS: RisperiDONE 3 MG TABLET PO SCH ×2 (09:26→17:00)
[2017-06-20] MEDS: BENZTROPINE MESYLATE 2 MG TABLET PO SCH ×2 (09:26→20:31)
[2017-06-20 16:26] VITALS: BP 122/67
[2017-06-20] MEDS: TraZODone HCL 50 MG TABLET PO SCH (20:31)
[2017-06-20] MEDS: ZOLPIDEM TARTRATE 10 MG TABLET PO PRN (20:49)
[2017-06-21 02:42] VITALS: BP 117/66
[2017-06-21] MEDS: LITHIUM CARBONATE 300 MG CAPSULE PO SCH ×2 (08:06→16:05)
[2017-06-21] MEDS: LORazepam 2 MG TABLET PO PRN ×2 (08:06→16:05)
[2017-06-21] MEDS: RisperiDONE 3 MG TABLET PO SCH ×2 (08:06→16:05)
[2017-06-21] MEDS: BENZTROPINE MESYLATE 2 MG TABLET PO SCH ×2 (08:06→20:02)
[2017-06-21 08:24] VITALS: BP 124/72
[2017-06-21] MEDS: TraZODone HCL 50 MG TABLET PO SCH (20:02)
[2017-06-21] MEDS: ZOLPIDEM TARTRATE 10 MG TABLET PO PRN (20:02)
[2017-06-22 00:02] VITALS: BP 122/62
[2017-06-22 08:34] VITALS: BP 134/76
[2017-06-22] MEDS: LITHIUM CARBONATE 300 MG CAPSULE PO SCH ×2 (08:41→16:01)
[2017-06-22] MEDS: BENZTROPINE MESYLATE 2 MG TABLET PO SCH ×2 (08:41→20:01)
[2017-06-22] MEDS: RisperiDONE 3 MG TABLET PO SCH ×2 (08:41→16:01)
[2017-06-22] MEDS: LORazepam 2 MG TABLET PO PRN ×2 (10:09→16:00)
[2017-06-22 16:17] VITALS: BP 105/70
[2017-06-22] MEDS: TraZODone HCL 50 MG TABLET PO SCH (20:01)
[2017-06-22] MEDS: ZOLPIDEM TARTRATE 10 MG TABLET PO PRN (20:01)
[2017-06-23 00:01] VITALS: BP 108/69
[2017-06-23] MEDS: LORazepam 2 MG TABLET PO PRN (07:51)
[2017-06-23] MEDS: LITHIUM CARBONATE 300 MG CAPSULE PO SCH ×2 (08:20→17:11)
[2017-06-23] MEDS: BENZTROPINE MESYLATE 2 MG TABLET PO SCH ×2 (08:20→20:01)
[2017-06-23] MEDS: RisperiDONE 3 MG TABLET PO SCH ×2 (08:20→17:11)
[2017-06-23 08:38] VITALS: BP 134/77
[2017-06-23 16:24] VITALS: BP 129/61
[2017-06-23] MEDS: ZOLPIDEM TARTRATE 10 MG TABLET PO PRN (20:01)
[2017-06-23] MEDS: TraZODone HCL 50 MG TABLET PO SCH (20:01)
[2017-06-24 05:35] VITALS: BP 116/83
[2017-06-24] MEDS: BENZTROPINE MESYLATE 2 MG TABLET PO SCH ×2 (08:25→20:11)
[2017-06-24] MEDS: RisperiDONE 3 MG TABLET PO SCH ×2 (08:25→16:18)
[2017-06-24] MEDS: LITHIUM CARBONATE 300 MG CAPSULE PO SCH ×2 (08:25→16:18)
[2017-06-24 08:41] VITALS: BP 122/77
[2017-06-24 16:28] VITALS: BP 115/89
[2017-06-24] MEDS: ZOLPIDEM TARTRATE 10 MG TABLET PO PRN (20:11)
[2017-06-24] MEDS: TraZODone HCL 50 MG TABLET PO SCH (20:11)
[2017-06-25 03:57] VITALS: BP 114/65
[2017-06-25] MEDS: BENZTROPINE MESYLATE 2 MG TABLET PO SCH (08:31)
[2017-06-25] MEDS: RisperiDONE 3 MG TABLET PO SCH (08:31)
[2017-06-25] MEDS: LITHIUM CARBONATE 300 MG CAPSULE PO SCH (08:31)
[2017-06-25 08:47] VITALS: BP 125/72
[2017-06-25] MEDS ORDERED: BENZ2TAB10 PO (10:16)
[2017-06-25] MEDS ORDERED: TRAZ-144 PO (10:18)
== END 2017-06-25 12:20 | disposition home or self-care (01) | DRG 750 ==
LOC: EMS 21:16 → B2S 23:25
PROVIDERS: ADMIT Psychiatry & Neurology Psychiatry; ATTEND Psychiatry & Neurology Psychiatry
DX: F25.9 Schizoaffective disorder, unspecified (principal); K73.9 Chronic hepatitis, unspecified; Z91.14 Patient's other noncompliance with medication regimen; J44.9 Chronic obstructive pulmonary disease, unspecified; F41.9 Anxiety disorder, unspecified; F31.9 Bipolar disorder, unspecified; G47.00 Insomnia, unspecified; F10.10 Alcohol abuse, uncomplicated; Z87.891 Personal history of nicotine dependence; Z88.8 Allergy status to other drugs, medicaments and biological substances; Z28.21 Immunization not carried out because of patient refusal
CPT/HCPCS: 83036; 99285; G0480; J3535

== ENCOUNTER 2017-07-21 21:14 | Inpatient (IN) | payer MEDICAID ==
[~2017-07-21] VITALS: Ht 177.8 cm; Wt 75.7 kg
[2017-07-21] MEDS ORDERED: LURA20TA PO (21:22)
[2017-07-21 21:58] LABS: BASOPHILS % (AUTO) 0.6 % (0.0-2.0); EOSINOPHILS % (AUTO) 2.4 % (1.0-6.0); HEMATOCRIT 43.1 % (41-53); HEMOGLOBIN 14.9 g/dL (13.5-17.5); LYMPHOCYTES # (AUTO) 1.6 K/uL (1.0-4.8); LYMPHOCYTES % (AUTO) 23.9 % (22.0-44.0); MEAN CORPUSCULAR HGB CONC 34.5 G/dL (31.0-37.0); MEAN CORPUSCULAR VOLUME 90 fL (80-100); MONOCYTES # (AUTO) 0.5 K/uL (0.1-1.0); MONOCYTES % (AUTO) 8.1 % (2.0-9.0); NEUTROPHILS # (AUTO) 4.3 K/uL (1.8-7.7); PLATELET COUNT (AUTO) 236 K/uL (150-450); RED BLOOD CELL COUNT(AUTO) 4.79 MIL/uL (4.50-5.90); RED CELL DISTRIBUTION WIDTH 13.8 % (11.5-14.5)
[2017-07-21 22:06] LABS: AMPHET/METH SCREEN,URINE POSITIVE (NEGATIVE); BARBITURATE SCREEN, URINE NEGATIVE (NEGATIVE); BENZODIAZEPINES SCREEN,URINE NEGATIVE (NEGATIVE); CANNABINOID SCREEN,URINE NEGATIVE (NEGATIVE); COCAINE SCREEN,URINE NEGATIVE (NEGATIVE); METHADONE SCREEN, URINE NEGATIVE (NEGATIVE); OPIATE SCREEN,URINE NEGATIVE (NEGATIVE)
[2017-07-21 22:08] LABS: ANION GAP 3 mmol/L (8-16); CALCIUM, TOTAL 8.9 mg/dL (8.8-10.5); CARBON DIOXIDE 31 mmol/L (22-29); CHLORIDE 103 mmol/L (98-107); CREATININE 0.79 mg/dL (0.60-1.30); GLOMERULAR FILTR. RATE CALC > 60 mL/min (>60); GLUCOSE,RANDOM 147 mg/dL (70-110); POTASSIUM 3.9 mmol/L (3.5-5.1); SODIUM SERUM 137 mmol/L (136-145); UREA NITROGEN, BLOOD 19 mg/dL (7-18)
[2017-07-21 22:12] LABS: PHENCYCLIDINE SCREEN,URINE NEGATIVE (NEGATIVE)
[2017-07-21 22:14] LABS: ALANINE AMINOTRANSFERASE 36 U/L (12-78); ALBUMIN 3.8 g/dL (3.4-5.0); ALKALINE PHOSPHATASE 74 U/L (46-116); ASPARTATE AMINOTRANSFERASE 34 U/L (15-37); BILIRUBIN,TOTAL 0.7 mg/dL (0.1-1.0); TOTAL PROTEIN, SERUM 7.9 g/dL (6.4-8.2)
[2017-07-22] MEDS ORDERED: OLANZapine 5 MG RAPDIS TABLET PO PRN (01:45)
[2017-07-22] MEDS ORDERED: ZOLPIDEM TARTRATE 10 MG TABLET PO PRN (01:45)
[2017-07-22] MEDS ORDERED: OLANZapine 5 MG TABLET PO ONE (05:15)
[2017-07-22 10:56] VITALS: BP 117/73
[2017-07-22] MEDS ORDERED: PNEUMOCOCCAL VACCINE POLYVALENT 0.5 ML VIAL [PPSV23] IM ONE (11:30)
[2017-07-22] MEDS ORDERED: ACETAMINOPHEN 325 MG TABLET PO PRN (16:00)
[2017-07-22] MEDS ORDERED: IBUPROFEN 400 MG TABLET PO PRN (16:00)
[2017-07-22 16:36] VITALS: BP 102/60
[2017-07-23 05:50] VITALS: BP 109/76
[2017-07-23 08:22] VITALS: BP 100/58
[2017-07-23] MEDS: RisperiDONE 3 MG TABLET PO SCH ×2 (10:12→16:35)
[2017-07-23 17:16] VITALS: BP 103/60
[2017-07-23] MEDS: LORazepam 2 MG TABLET PO PRN (17:48)
[2017-07-24 07:15] VITALS: BP 121/67
[2017-07-24 08:05] VITALS: BP 123/64
[2017-07-24] MEDS: RisperiDONE 3 MG TABLET PO SCH ×2 (08:32→16:11)
[2017-07-24 08:57] LABS: BASOPHILS % (AUTO) 0.6 % (0.0-2.0); EOSINOPHILS % (AUTO) 3.8 % (1.0-6.0); HEMATOCRIT 42.8 % (41-53); LYMPHOCYTES # (AUTO) 1.4 K/uL (1.0-4.8); LYMPHOCYTES % (AUTO) 28.7 % (22.0-44.0); MEAN CORPUSCULAR HEMOGLOBIN 31.2 pg (26.0-34.0); MEAN CORPUSCULAR VOLUME 89 fL (80-100); MONOCYTES # (AUTO) 0.5 K/uL (0.1-1.0); MONOCYTES % (AUTO) 9.5 % (2.0-9.0); NEUTROPHILS # (AUTO) 2.8 K/uL (1.8-7.7); NEUTROPHILS % (AUTO) 57.4 % (40.0-70.0); PLATELET COUNT (AUTO) 195 K/uL (150-450); RED BLOOD CELL COUNT(AUTO) 4.79 MIL/uL (4.50-5.90); RED CELL DISTRIBUTION WIDTH 13.3 % (11.5-14.5)
[2017-07-24 09:21] LABS: HEMOGLOBIN A1C 6.5 % (4.5-6.2)
[2017-07-24 10:01] LABS: ALANINE AMINOTRANSFERASE 32 U/L (12-78); ALBUMIN 3.1 g/dL (3.4-5.0); ALKALINE PHOSPHATASE 62 U/L (46-116); ANION GAP 5 mmol/L (8-16); ASPARTATE AMINOTRANSFERASE 34 U/L (15-37); BILIRUBIN,TOTAL 0.6 mg/dL (0.1-1.0); CALCIUM, TOTAL 8.5 mg/dL (8.8-10.5); CARBON DIOXIDE 29 mmol/L (22-29); CHLORIDE 106 mmol/L (98-107); CHOL/HDL RATIO 3.5 (4.2-7.3); CHOLESTEROL 127 mg/dL (131-200); CREATININE 0.71 mg/dL (0.60-1.30); FREE T4 (FREE THYROXINE) 1.06 ng/dL (0.76-1.46); GLOMERULAR FILTR. RATE CALC > 60 mL/min (>60); GLUCOSE,RANDOM 92 mg/dL (70-110); HDL CHOLESTEROL 36 mg/dL (40-60); LDL CHOL (CALC.) 66 mg/dL (0-130); POTASSIUM 4.3 mmol/L (3.5-5.1); SODIUM SERUM 140 mmol/L (136-145); THYROID STIMULATING HORMONE 1.47 uIU/mL (0.36-3.74); TRIGLYCERIDES 123 mg/dL (15-150); UREA NITROGEN, BLOOD 17 mg/dL (7-18)
[2017-07-24] MEDS: LORazepam 2 MG TABLET PO PRN (16:11)
[2017-07-24 16:18] VITALS: BP 110/63
[2017-07-25] VITALS: BP 108/60
[2017-07-25 08:08] VITALS: BP 115/62
[2017-07-25] MEDS: RisperiDONE 3 MG TABLET PO SCH ×2 (08:37→16:28)
[2017-07-25 16:04] VITALS: BP 122/68
[2017-07-26 06:31] VITALS: BP 120/86
[2017-07-26 08:35] VITALS: BP 102/66
[2017-07-26] MEDS: RisperiDONE 3 MG TABLET PO SCH ×2 (08:51→16:41)
[2017-07-26 16:00] VITALS: BP 100/62
[2017-07-26] MEDS: LORazepam 2 MG TABLET PO PRN (16:44)
[2017-07-27 06:13] VITALS: BP 110/71
[2017-07-27] MEDS: RisperiDONE 3 MG TABLET PO SCH ×2 (08:44→16:36)
[2017-07-27 08:58] VITALS: BP 101/69
[2017-07-27 16:00] VITALS: BP 100/60
[2017-07-27 16:30] VITALS: BP 110/70
[2017-07-27] MEDS: LORazepam 2 MG TABLET PO PRN (16:36)
[2017-07-28] VITALS: BP 100/63
[2017-07-28 08:37] VITALS: BP 110/54
[2017-07-28] MEDS: RisperiDONE 3 MG TABLET PO SCH ×2 (09:08→16:11)
[2017-07-28 16:10] VITALS: BP 108/67
[2017-07-28] MEDS: LORazepam 2 MG TABLET PO PRN (16:11)
[2017-07-28 16:39] VITALS: BP 98/56
[2017-07-29 01:41] VITALS: BP 112/60
[2017-07-29 08:35] VITALS: BP 108/62
[2017-07-29] MEDS: RisperiDONE 3 MG TABLET PO SCH ×2 (09:39→16:11)
[2017-07-29 16:08] VITALS: BP 109/71
== END 2017-07-29 09:20 | disposition home or self-care (01) | DRG 753 ==
LOC: EMS 21:15 → B2S 07-22 08:19
PROVIDERS: ADMIT Psychiatry & Neurology Psychiatry; ATTEND Psychiatry & Neurology Psychiatry
DX: F31.64 Bipolar disorder, current episode mixed, severe, with psychotic features (principal); F15.10 Other stimulant abuse, uncomplicated; F17.200 Nicotine dependence, unspecified, uncomplicated; B18.2 Chronic viral hepatitis C; J44.9 Chronic obstructive pulmonary disease, unspecified; F41.9 Anxiety disorder, unspecified; Z88.8 Allergy status to other drugs, medicaments and biological substances; Z59.0 Homelessness
CPT/HCPCS: 83036; 84439; 84443; 99285; G0480

== ENCOUNTER 2017-08-19 20:57 | Inpatient (IN) | payer MEDICAID ==
[~2017-08-19] VITALS: Ht 175.3 cm; Wt 81.9 kg
[~2017-08-19 20:57] MED LIST changes: -BENZ2TAB10 PO; +DIVA-78 PO; +LITH300C3 PO; -LITH600 PO; -TRAZ-144 PO
[2017-08-19] MEDS ORDERED: ZOLPIDEM TARTRATE 10 MG TABLET PO PRN (21:15)
[2017-08-19 21:55] VITALS: BP 123/73
[2017-08-19] MEDS ORDERED: PNEUMOCOCCAL VACCINE POLYVALENT 0.5 ML VIAL [PPSV23] IM ONE (22:00)
[2017-08-19] MEDS ORDERED: CloNIDine HCL 0.1 MG TABLET PO PRN (22:15)
[2017-08-19] MEDS ORDERED: MAGNESIUM HYDROXIDE SUSPENSION 30 ML UDCUP PO PRN (22:15)
[2017-08-19] MEDS ORDERED: ONDANSETRON HCL 4 MG TABLET PO PRN (22:15)
[2017-08-19] MEDS ORDERED: BENZOCAINE/MENTHOL LOZENGE MM PRN (22:15)
[2017-08-19] MEDS ORDERED: ALBUTEROL SULFATE HFA 90 MCG/PUFF 8 GM INHALER IH PRN (22:15)
[2017-08-19] MEDS ORDERED: ACETAMINOPHEN 325 MG TABLET PO PRN (22:15)
[2017-08-19] MEDS ORDERED: LOPERAMIDE HCL 2 MG CAPSULE PO PRN (22:15)
[2017-08-19] MEDS ORDERED: MAG HYDROX/AL HYDROX/SIMETH ES 30 ML SUSPENSION UDCUP PO PRN (22:15)
[2017-08-19] MEDS ORDERED: BACITRACIN 28.4 GM OINTMENT TP PRN (22:15)
[2017-08-19] MEDS ORDERED: IBUPROFEN 600 MG TABLET PO PRN (22:15)
[2017-08-19] MEDS ORDERED: PETROLATUM,WHITE 71 GM JELLY TP PRN (22:15)
[2017-08-20 06:28] VITALS: BP 109/61
[2017-08-20 08:11] VITALS: BP 114/62
[2017-08-20 08:28] LABS: BASOPHILS % (AUTO) 0.8 % (0.0-2.0); EOSINOPHILS % (AUTO) 3.9 % (1.0-6.0); HEMATOCRIT 41.1 % (41-53); HEMOGLOBIN 14.5 g/dL (13.5-17.5); MEAN CORPUSCULAR HEMOGLOBIN 31.4 pg (26.0-34.0); MEAN CORPUSCULAR HGB CONC 35.3 G/dL (31.0-37.0); MEAN CORPUSCULAR VOLUME 89 fL (80-100); MONOCYTES % (AUTO) 20.4 % (2.0-9.0); NEUTROPHILS # (AUTO) 2.7 K/uL (1.8-7.7); NEUTROPHILS % (AUTO) 54.9 % (40.0-70.0); PLATELET COUNT (AUTO) 156 K/uL (150-450); RED BLOOD CELL COUNT(AUTO) 4.62 MIL/uL (4.50-5.90); RED CELL DISTRIBUTION WIDTH 13.2 % (11.5-14.5)
[2017-08-20 08:43] LABS: HEMOGLOBIN A1C 6.5 % (4.5-6.2)
[2017-08-20] MEDS: DOCUSATE SODIUM 100 MG CAPSULE PO SCH (09:00)
[2017-08-20] MEDS: OMEPRAZOLE 20 MG CAPSULE PO SCH (09:00)
[2017-08-20 09:01] LABS: ALANINE AMINOTRANSFERASE 43 U/L (12-78); ALBUMIN 3.3 g/dL (3.4-5.0); ALKALINE PHOSPHATASE 95 U/L (46-116); ANION GAP 3 mmol/L (8-16); ASPARTATE AMINOTRANSFERASE 43 U/L (15-37); BILIRUBIN,TOTAL 0.5 mg/dL (0.1-1.0); CALCIUM, TOTAL 8.9 mg/dL (8.8-10.5); CARBON DIOXIDE 29 mmol/L (22-29); CHLORIDE 106 mmol/L (98-107); CHOL/HDL RATIO 2.9 (4.2-7.3); CHOLESTEROL 132 mg/dL (131-200); CREATININE 0.89 mg/dL (0.60-1.30); FREE T4 (FREE THYROXINE) 0.86 ng/dL (0.76-1.46); GLOMERULAR FILTR. RATE CALC > 60 mL/min (>60); GLUCOSE,RANDOM 118 mg/dL (70-110); HDL CHOLESTEROL 45 mg/dL (40-60); LDL CHOL (CALC.) 74 mg/dL (0-130); POTASSIUM 4.3 mmol/L (3.5-5.1); SODIUM SERUM 138 mmol/L (136-145); THYROID STIMULATING HORMONE 1.28 uIU/mL (0.36-3.74); TOTAL PROTEIN, SERUM 7.1 g/dL (6.4-8.2); TRIGLYCERIDES 63 mg/dL (15-150); UREA NITROGEN, BLOOD 20 mg/dL (7-18)
[2017-08-20 16:00] VITALS: BP 119/69
[2017-08-20] MEDS: LORazepam 2 MG TABLET PO PRN ×2 (16:10→21:13)
[2017-08-21 05:28] VITALS: BP 122/72
[2017-08-21 08:41] VITALS: BP 108/69
[2017-08-21] MEDS ORDERED: LITHIUM CARBONATE 300 MG CAPSULE PO SCH (09:00)
[2017-08-21] MEDS ORDERED: RisperiDONE 3 MG TABLET PO SCH (09:00)
[2017-08-21] MEDS: DOCUSATE SODIUM 100 MG CAPSULE PO SCH (09:00)
[2017-08-21] MEDS: OMEPRAZOLE 20 MG CAPSULE PO SCH (09:00)
[2017-08-21] MEDS ORDERED: DIVALPROEX SODIUM 500 MG DR TABLET PO SCH (09:00)
== END 2017-08-21 15:07 | disposition home or self-care (01) | DRG 750 ==
LOC: B3A 21:15
PROVIDERS: ADMIT Psychiatry & Neurology Psychiatry; ATTEND Psychiatry & Neurology Psychiatry
DX: F25.9 Schizoaffective disorder, unspecified (principal); E11.65 Type 2 diabetes mellitus with hyperglycemia; R45.851 Suicidal ideations; B18.2 Chronic viral hepatitis C; F31.9 Bipolar disorder, unspecified; F12.90 Cannabis use, unspecified, uncomplicated; F17.200 Nicotine dependence, unspecified, uncomplicated; Z71.6 Tobacco abuse counseling; G47.00 Insomnia, unspecified; J44.9 Chronic obstructive pulmonary disease, unspecified; M19.90 Unspecified osteoarthritis, unspecified site; Z59.0 Homelessness
CPT/HCPCS: 83036; 84439; 84443; 90471

== ENCOUNTER 2018-03-08 15:43 | Inpatient (IN) | payer MEDICAID ==
[~2018-03-08] VITALS: Ht 177.8 cm; Wt 78.0 kg
[2018-03-08 16:02] VITALS: BP 113/69
[2018-03-08] MEDS ORDERED: LORazepam 2 MG TABLET PO PRN (16:15)
[2018-03-08] MEDS ORDERED: ZOLPIDEM TARTRATE 10 MG TABLET PO PRN (16:15)
[2018-03-08] MEDS ORDERED: QUEtiapine FUMARATE 100 MG TABLET PO PRN (16:15)
[2018-03-08 16:58] VITALS: BP 126/69
[2018-03-08] MEDS ORDERED: GuaiFENesin/D-METHORPHAN [SUGAR-FREE] 200-20MG/10 ML SYRUP UDCUP PO PRN (20:30)
[2018-03-08] MEDS ORDERED: CloNIDine HCL 0.1 MG TABLET PO PRN (20:30)
[2018-03-08] MEDS ORDERED: ACETAMINOPHEN 325 MG TABLET PO PRN (20:30)
[2018-03-08] MEDS ORDERED: DOCUSATE SODIUM 100 MG CAPSULE PO PRN (20:30)
[2018-03-08] MEDS ORDERED: MAG HYDROX/AL HYDROX/SIMETH ES 30 ML SUSPENSION UDCUP PO PRN (20:30)
[2018-03-08] MEDS ORDERED: MAGNESIUM HYDROXIDE SUSPENSION 30 ML UDCUP PO PRN (20:30)
[2018-03-08] MEDS ORDERED: PETROLATUM,WHITE 71 GM JELLY TP PRN (20:30)
[2018-03-08] MEDS ORDERED: LOPERAMIDE HCL 2 MG CAPSULE PO PRN (20:30)
[2018-03-08] MEDS ORDERED: IBUPROFEN 400 MG TABLET PO PRN (20:30)
[2018-03-08] MEDS ORDERED: NICOTINE 14 MG/24 HOUR PATCH TD PRN (20:30)
[2018-03-08] MEDS ORDERED: ONDANSETRON HCL 4 MG TABLET PO PRN (20:30)
[2018-03-08 22:54] LABS: GLUCOMETER DEV NAME(LOC) BV2X.; GLUCOSE,POINT OF CARE 116 MG/DL (70-110)
[2018-03-09] MEDS ORDERED: PNEUMOCOCCAL VACCINE POLYVALENT 0.5 ML VIAL [PPSV23] IM ONE (02:00)
[2018-03-09 06:11] VITALS: BP 123/65
[2018-03-09] MEDS: DIVALPROEX SODIUM 500 MG ER TABLET PO SCH (17:16)
[2018-03-09] MEDS: RisperiDONE 3 MG TABLET PO SCH (17:16)
[2018-03-09] MEDS: LITHIUM CARBONATE 300 MG CAPSULE PO SCH (17:16)
[2018-03-09 17:28] VITALS: BP 109/61
[2018-03-10 05:21] VITALS: BP 125/64
[2018-03-10 07:47] LABS: BASOPHILS % (AUTO) 0.5 % (0.0-2.0); EOSINOPHILS % (AUTO) 2.5 % (1.0-6.0); HEMATOCRIT 43.4 % (41-53); HEMOGLOBIN 14.4 g/dL (13.5-17.5); LYMPHOCYTES # (AUTO) 1.2 K/uL (1.0-4.8); LYMPHOCYTES % (AUTO) 25.7 % (22.0-44.0); MEAN CORPUSCULAR HEMOGLOBIN 30.5 pg (26.0-34.0); MEAN CORPUSCULAR HGB CONC 33.3 G/dL (31.0-37.0); MEAN CORPUSCULAR VOLUME 92 fL (80-100); MONOCYTES # (AUTO) 0.5 K/uL (0.1-1.0); MONOCYTES % (AUTO) 10.1 % (2.0-9.0); NEUTROPHILS # (AUTO) 2.8 K/uL (1.8-7.7); NEUTROPHILS % (AUTO) 61.2 % (40.0-70.0); PLATELET COUNT (AUTO) 233 K/uL (150-450); RED BLOOD CELL COUNT(AUTO) 4.73 MIL/uL (4.50-5.90); RED CELL DISTRIBUTION WIDTH 12.7 % (11.5-14.5)
[2018-03-10 08:04] LABS: HEMOGLOBIN A1C 6.4 % (4.5-6.2)
[2018-03-10 08:09] LABS: ALANINE AMINOTRANSFERASE 24 U/L (12-78); ALKALINE PHOSPHATASE 71 U/L (46-116); ANION GAP 4 mmol/L (8-16); ASPARTATE AMINOTRANSFERASE 32 U/L (15-37); BILIRUBIN,TOTAL 0.6 mg/dL (0.1-1.0); CALCIUM, TOTAL 9.1 mg/dL (8.8-10.5); CARBON DIOXIDE 29 mmol/L (22-29); CHLORIDE 103 mmol/L (98-107); CHOL/HDL RATIO 3.8 (4.2-7.3); CHOLESTEROL 135 mg/dL (131-200); CREATININE 0.71 mg/dL (0.60-1.30); FREE T4 (FREE THYROXINE) 1.01 ng/dL (0.76-1.46); GLOMERULAR FILTR. RATE CALC > 60 mL/min (>60); GLUCOSE,RANDOM 137 mg/dL (70-110); HDL CHOLESTEROL 36 mg/dL (40-60); LDL CHOL (CALC.) 73 mg/dL (0-130); POTASSIUM 4.5 mmol/L (3.5-5.1); SODIUM SERUM 136 mmol/L (136-145); THYROID STIMULATING HORMONE 0.84 uIU/mL (0.36-3.74); TOTAL PROTEIN, SERUM 7.1 g/dL (6.4-8.2); TRIGLYCERIDES 131 mg/dL (15-150); UREA NITROGEN, BLOOD 17 mg/dL (7-18)
[2018-03-10 08:32] VITALS: BP 110/62
[2018-03-10] MEDS: DIVALPROEX SODIUM 500 MG ER TABLET PO SCH ×2 (09:00→16:21)
[2018-03-10] MEDS: LITHIUM CARBONATE 300 MG CAPSULE PO SCH ×2 (09:37→16:21)
[2018-03-10] MEDS: RisperiDONE 3 MG TABLET PO SCH ×2 (09:37→16:21)
[2018-03-10 16:10] VITALS: BP 108/66
[2018-03-11 06:41] VITALS: BP 108/68
[2018-03-11 08:19] VITALS: BP 139/73
[2018-03-11] MEDS: DIVALPROEX SODIUM 500 MG ER TABLET PO SCH ×2 (09:00→16:20)
[2018-03-11] MEDS: LITHIUM CARBONATE 300 MG CAPSULE PO SCH ×2 (10:16→16:17)
[2018-03-11] MEDS: RisperiDONE 3 MG TABLET PO SCH ×2 (10:16→16:19)
[2018-03-12] MEDS: DIVALPROEX SODIUM 500 MG ER TABLET PO SCH (09:00)
[2018-03-12] MEDS: RisperiDONE 3 MG TABLET PO SCH ×2 (09:16→16:16)
[2018-03-12] MEDS: LITHIUM CARBONATE 300 MG CAPSULE PO SCH ×2 (09:16→16:16)
[2018-03-12 16:24] VITALS: BP 105/68
[2018-03-13 06:00] VITALS: BP 112/73
[2018-03-13] MEDS: RisperiDONE 3 MG TABLET PO SCH ×2 (08:30→16:28)
[2018-03-13] MEDS: LITHIUM CARBONATE 300 MG CAPSULE PO SCH ×2 (08:30→16:28)
[2018-03-13 08:33] VITALS: BP 118/65
[2018-03-13 16:13] VITALS: BP 108/57
[2018-03-14 04:19] VITALS: BP 110/68
[2018-03-14 08:31] VITALS: BP 103/64
[2018-03-14] MEDS: RisperiDONE 3 MG TABLET PO SCH ×2 (09:09→16:15)
[2018-03-14] MEDS: LITHIUM CARBONATE 300 MG CAPSULE PO SCH ×2 (09:09→16:15)
[2018-03-14 17:54] VITALS: BP 103/62
[2018-03-15 05:04] VITALS: BP 110/68
[2018-03-15 08:22] VITALS: BP 120/60
[2018-03-15] MEDS: RisperiDONE 3 MG TABLET PO SCH (09:21)
[2018-03-15] MEDS: LITHIUM CARBONATE 300 MG CAPSULE PO SCH (09:21)
== END 2018-03-15 12:05 | disposition home or self-care (01) | DRG 750 ==
LOC: B2S 16:09
PROVIDERS: ADMIT Psychiatry & Neurology Psychiatry; ATTEND Psychiatry & Neurology Psychiatry
DX: F25.0 Schizoaffective disorder, bipolar type (principal); R45.851 Suicidal ideations; E11.9 Type 2 diabetes mellitus without complications; J44.9 Chronic obstructive pulmonary disease, unspecified; F17.200 Nicotine dependence, unspecified, uncomplicated; F41.9 Anxiety disorder, unspecified; R45.87 Impulsiveness; B18.2 Chronic viral hepatitis C; Z88.8 Allergy status to other drugs, medicaments and biological substances; Z71.6 Tobacco abuse counseling; Z59.0 Homelessness; Z91.5 Personal history of self-harm
CPT/HCPCS: 83036; 84439; 84443

== ENCOUNTER 2018-05-01 05:39 | Emergency (ER) | payer MEDICAID ==
[~2018-05-01] VITALS: Ht 188 cm; Wt 79.5 kg
[~2018-05-01 05:39] MED LIST changes: -DIVA-78 PO
[2018-05-01 08:22] LABS: BASOPHILS % (AUTO) 0.5 % (0.0-2.0); EOSINOPHILS % (AUTO) 0.7 % (1.0-6.0); HEMATOCRIT 40.8 % (41-53); HEMOGLOBIN 14.1 g/dL (13.5-17.5); LYMPHOCYTES # (AUTO) 1.1 K/uL (1.0-4.8); MEAN CORPUSCULAR HEMOGLOBIN 30.5 pg (26.0-34.0); MEAN CORPUSCULAR HGB CONC 34.7 G/dL (31.0-37.0); MEAN CORPUSCULAR VOLUME 88 fL (80-100); MONOCYTES # (AUTO) 0.5 K/uL (0.1-1.0); MONOCYTES % (AUTO) 8.1 % (2.0-9.0); NEUTROPHILS % (AUTO) 71.7 % (40.0-70.0); PLATELET COUNT (AUTO) 237 K/uL (150-450); RED BLOOD CELL COUNT(AUTO) 4.64 MIL/uL (4.50-5.90); RED CELL DISTRIBUTION WIDTH 12.8 % (11.5-14.5)
[2018-05-01 08:35] LABS: LITHIUM < 0.20 mmol/L (0.60-1.20)
[2018-05-01 08:36] LABS: ANION GAP 7 mmol/L (8-16); CALCIUM, TOTAL 9.4 mg/dL (8.8-10.5); CARBON DIOXIDE 29 mmol/L (22-29); CHLORIDE 103 mmol/L (98-107); CREATININE 0.52 mg/dL (0.60-1.30); GLOMERULAR FILTR. RATE CALC > 60 mL/min (>60); GLUCOSE,RANDOM 110 mg/dL (70-110); SODIUM SERUM 139 mmol/L (136-145); UREA NITROGEN, BLOOD 18 mg/dL (7-18)
[2018-05-01 08:43] LABS: ALANINE AMINOTRANSFERASE 41 U/L (12-78); ALBUMIN 3.6 g/dL (3.4-5.0); ALKALINE PHOSPHATASE 73 U/L (46-116); ASPARTATE AMINOTRANSFERASE 66 U/L (15-37); TOTAL PROTEIN, SERUM 7.2 g/dL (6.4-8.2)
[2018-05-02 07:42] VITALS: BP 142/89
== END 2018-05-01 16:31 | disposition home or self-care (01) ==
LOC: EMS 05:39
DX: F79 Unspecified intellectual disabilities (principal); R03.0 Elevated blood-pressure reading, without diagnosis of hypertension; F31.9 Bipolar disorder, unspecified; F17.210 Nicotine dependence, cigarettes, uncomplicated; Z59.0 Homelessness; Z88.8 Allergy status to other drugs, medicaments and biological substances
CPT/HCPCS: 36415; 80053; 80178; 85025; 99285; G0480

== ENCOUNTER 2018-05-08 11:21 | Emergency (ER) | payer MEDICAID | END 2018-05-08 12:56 | disposition home or self-care (01) | LOC: EMS 11:23 | DX: M79.671 Pain in right foot (principal); M79.672 Pain in left foot; F17.210 Nicotine dependence, cigarettes, uncomplicated; F31.9 Bipolar disorder, unspecified; Z59.0 Homelessness; Z88.8 Allergy status to other drugs, medicaments and biological substances ==